=== PATIENT | female | born 1950 | race Caucasian/White ===

== ENCOUNTER → 2020-07-27 06:35 | Outpatient (CLI) | payer OTHER, MEDICARE, SELFPAY ==
[2020-07-27 19:16] LABS: SARS-CoV-2 RNA PCR Negative
== END ==
PROVIDERS: PCP Family Medicine; Visit Provider Specialist
DX: Z01.812 Encounter for preprocedural laboratory examination (principal); Z20.822 Contact with and (suspected) exposure to COVID-19
CPT/HCPCS: C9803; U0003; U0005

== ENCOUNTER 2020-07-31 01:14 | Day surgery (SDC) | payer OTHER, MEDICARE, SELFPAY ==
[2020-07-30 17:13] VITALS: BMI 37.5
[2020-07-31] VITALS (9 sets, daily range): BP systolic 128–187; BP diastolic 58–71; PULSE 71–92; RESP 12–18; TEMP 36.4–36.6; O2SAT 97–100
[2020-07-31 09:14] LABS: Basophils Percent Auto 0.4 % (0.2-1.2); Eosinophils Absolute Auto 0.1 K/mm3 (0-0.3); Eosinophils Percent Auto 1.6 % (0-4.4); Hematocrit 38.5 % (37.0-47.0); Hemoglobin 12.6 g/dL (12.0-15.0); Immature Granulocyte Absolute 0.03 K/mm3 (0.00-0.031); Immature Granulocyte Percent A 0.4 % (0-0.5); Lymphocytes Absolute Auto 1.91 K/mm3 (0.9-3.2); Lymphocytes Percent Auto 22.3 % (18.3-44.2); Mean Corpuscular HGB Conc 32.7 g/dl (32-36); Mean Corpuscular Hemoglobin 29.2 pg (26-34); Mean Corpuscular Volume 89.1 fl (80-100); Monocytes Absolute Auto 0.9 K/mm3 (0.1-0.6); Monocytes Percent Auto 9.9 % (2.6-8.5); Neutrophils Absolute Auto 5.6 K/mm3 (1.3-6.7); Neutrophils Percent Auto 65.4 % (45.5-73.1); Platelet Count Result 187 k/mm3 (150-375); Red Blood Count 4.32 M/mm3 (4.2-5.4); Red Cell Distribution Width 13.5 % (11.5-14.5); White Blood Count 8.6 K/mm3 (4.5-10.0)
[2020-07-31 09:26] LABS: Anion Gap 6 mmol/L (8-16); Blood Urea Nitrogen 17 mg/dL (7-17); Calcium 9.9 mg/dL (8.4-10.2); Carbon Dioxide 33 mmol/L (22-30); Chloride 99 mmol/L (98-107); Estimated CRCL calculation 54 ml/min; Estimated Glomerular Filt Rate > 60; Glucose 156 mg/dL (65-105); Potassium 3.6 mmol/L (3.4-5.0); Sodium 138 mmol/L (137-145)
--- NOTE | 2020-07-31 09:42 | WPDMODSED ---
Moderate Sedation Note-Pt Data Patient Data Diagnosis: Aortic stenosis Present Complaint: Dyspnea Procedure to be performed/Plan: Right and left heart catheterization Allergies Allergy/AdvReac Type Severity Reaction Status Date / Time codeine Allergy Unknown Skin Verified 03/08/20 14:34 Reaction quinapril Allergy Unknown cough Verified 03/08/20 14:34 Home Medications Medication Instructions Recorded Confirmed Type aspirin 81 mg tablet,delayed 81 mg PO DAILY 04/24/19 07/31/20 History release metoprolol tartrate 25 mg tablet 25 mg PO BID 04/24/19 07/31/20 History rosuvastatin 20 mg tablet 20 mg PO DAILY 04/24/19 07/31/20 History clopidogrel 75 mg tablet 75 mg PO DAILY 09/26/19 07/31/20 History ascorbic acid (vitamin C) 500 mg PO DAILY 07/31/20 07/31/20 History cholecalciferol (vitamin D3) 125 mcg PO DAILY 07/31/20 07/31/20 History losartan-hydrochlorothiazide 1 tablet PO DAILY 07/31/20 07/31/20 History metformin 1,000 mg PO BID 07/31/20 07/31/20 History ei-as-pmmn-FA-Ca carb-vit K 1 tablet PO DAILY 07/31/20 07/31/20 History [Women's Multivitamin] naproxen sodium 440 mg PO DAILY 07/31/20 07/31/20 History Current Medications: Active Medications Sodium Chloride (Normal Saline Iv) 500 mls @ 100 mls/hr IV CONT .Q5H GWENDOLYN Sedation/Anesthesia: No previous sedation/anesthesia problems (including family history). [facility] Past Medical History Medical History (Updated 03/08/20 @ 14:55 by Joanne Madera DO) Breast cyst Hepatitis C antibody test negative Surgical History Surgical History H/O heart artery stent History of bilateral tubal ligation Family History Family History Father Family history of rheumatic fever, Onset Age: 46 Family history of cardiovascular disease Sibling Diabetes mellitus Hypertension Mother Hypertension Grandparent Hypertension Social History Social History Smoking status: Never smoker Alcohol intake: never Mod Sed Physical Exam Physical Exam Pre Procedural Exam: Normal: Neck, Throat, Airway, Lungs, Heart Size, Heart Rate, Heart Rhythm, Neuro Exam and Extremities and Variation: Appearance (Obese woman no apparent distress) Hours since solid foods: 12 Hours since liquid intake: 12 Internal Medicine - PN: Obj Da Vital Signs Vital Signs: Vital Signs - 24 hr 07/31/20 09:34 Temperature 36.6 C Pulse Rate 92 Respiratory Rate 15 Blood Pressure 187/70 H Pulse Oximetry 99 Meds/Results Medications: Active Medications Generic Name Dose Route Start Last Admin Trade Name Freq PRN Reason Stop Dose Admin Sodium Chloride 500 mls @ 100 mls/hr 07/31/20 07:00 Normal Saline Iv IV CONT .Q5H GWENDOLYN Labs CBC & Chem 7: 07/31/20 09:06 07/31/20 09:06 Labs: Laboratory Results - last 24 hr 07/31/20 07/31/20 09:06 09:06 WBC 8.6 RBC 4.32 Hgb 12.6 Hct 38.5 MCV 89.1 MCH 29.2 MCHC 32.7 RDW 13.5 Plt Count 187 MPV 11.0 H Immature Gran % (Auto) 0.4 Neut % (Auto) 65.4 Lymph % (Auto) 22.3 [place] % (Auto) 9.9 H Eos % (Auto) 1.6 Baso % (Auto) 0.4 Lymph # (Auto) 1.91 [place] # (Auto) 0.9 H Eos # (Auto) 0.1 Baso # (Auto) 0.0 Abs Immat Gran (auto) 0.03 Absolute Neuts (auto) 5.6 Absolute Nucleated RBC 0.0 Nucleated RBC % 0.0 Sodium 138 Potassium 3.6 Chloride 99 Carbon Dioxide 33 H Anion Gap 6 L BUN 17 Creatinine 0.90 Estim Creat Clear Calc 54 Estimated GFR > 60 Glucose 156 H Calcium 9.9 ASA Classification/Sedation ASA Classification/Sedation Risks: Risks, benefits and alternatives explained and patient/family accepted plan for sedation. Patient re-evaluated immediately prior to sedation.
[2020-07-31 09:56] LABS: INR 0.9; Prothrombin Time 13.1 Seconds (11.1-14.7)
--- NOTE | 2020-07-31 11:17 | WPDCARDPROC ---
Cardiac Cath Procedure Note Date of procedure:: 07/31/20 Performing physician:: Eran Kaur MD Indication:: Aortic valve stenosis / coronary artery disease Brief clinical history:: this is a 70-year-old woman who presented with acute anterior wall myocardial infarction last year. She underwent emergency PCI with stenting of the LAD. She was found to have significant aortic stenosis at that time with which she was either asymptomatic or mildly symptomatic. She now is experiencing exertional dyspnea and aortic valve area by echo appears to be severely stenotic. Right and left heart catheterization is now being recommended in anticipation of cardiothoracic surgery consultation. Procedure Procedure performed:: Right and left heart catheterization Sedation/Medication given:: fentanyl 50 mg Versed 2 mg case start time 10:33 a.m. case end time 11:10 a.m. sedation provided by Magdalena Matos RN, trained observer Access site:: right femoral artery, right femoral vein Estimated blood loss:: 20-30 cc Procedure note:: patient was brought to the cardiac catheterization lab in the postabsorptive state. The right femoral triangle was prepped and draped in the usual fashion. Anesthesia was given with 1% lidocaine infiltrated locally. Using the modified Seldinger technique a long 6 [place] 45 cm sheath was placed into the femoral artery into the central aorta. Following this a 7 [place] sheath was placed into the femoral vein. I used a standard balloon tip [place] catheter to perform right heart catheterization measuring hemodynamics as well as thermodilution cardiac outputs and then sampling av O2 difference. The [place] catheter was then. I then used a 5 [place] angled pigtail catheter to advanced to the central aorta. simultaneous pressures were then sampled in the central aorta through both catheters found to be identical. A straight guidewire was then placed into the pigtail catheter and the stenotic aortic valve was probed. I was able to traverse the stenotic valve and advanced the catheter to the left ventricle. Both catheters were then flushed and zeroed. following this simultaneous LV and aortic pressures were measured and aortic valve area was calculated. The same pigtail catheter was then used injected LV g in the DELATORRE projection . Pullback pressures were measured across the aortic valve. The pigtail catheter was then withdrawn. The coronary arteries were injected selectively using a standard 5 [place] FL4 catheter for the left coronary and a 5 [place] JR4 catheter for the right coronary artery. Procedure was then terminated angiogram was done of the femoral artery through the sheath after which a 6 [place] Angio-Seal device was deployed for hemostasis. 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 Findings:: Hemodynamics: Right atrium 8 mmHg, right ventricle 45 over 7 end-diastolic 12, pulmonary artery pressure 40 over 19, pulmonary capillary wedge pressure 18 central aortic pressure 150 over 58 left ventricle 238 over 2 end-diastolic 22. thermodilution cardiac output is 4.6 liters/minute giving an index of 2.4, Heidi cardiac output is 5.1 liters/minute giving an index of 2.7. The mean aortic valve gradient is 50.4 mmHg, calculated valve area 0.63 cm2. The left ventricle exhibits moderate concentric hypertrophy and is of normal dimension all segments contract nicely the global ejection fraction I would visually estimate to be 60%. Left main coronary artery is very short but without significant disease the LAD is a moderate caliber artery extending down to around the apex there is minimal plaquing in the LAD but does not appear to have any functionally significant lesion. The stent in the proximal LAD remains nicely patent. Circumflex is a medium caliber artery with giving rise to the marginal branches. The circumflex system is smooth and free of s
[2020-07-31] MEDS: SODIUM CHLORIDE 0.9% IV 1,000 ML 125 ML IV CONT (11:30)
--- NOTE | 2020-07-31 14:41 | SUR.PHASEII ---
Discharge instructions given and teaching performed. Patient verbalizes understanding. Patient escorted out of building by staff via wheelchair, where she was picked up by her .
== END 2020-07-31 14:35 | disposition home or self-care (01) ==
PROVIDERS: PCP Family Medicine; Visit Provider Specialist
PROC: 4A023N8 Measurement of Cardiac Sampling and Pressure, Bilateral, Percutaneous Approach (ICD-10-PCS; CPT 93453; principal; 2020-07-31 10:00)
DX: Z01.810 Encounter for preprocedural cardiovascular examination (principal); I35.0 Nonrheumatic aortic (valve) stenosis; I25.10 Atherosclerotic heart disease of native coronary artery without angina pectoris; I25.2 Old myocardial infarction; Z95.5 Presence of coronary angioplasty implant and graft; R06.09 Other forms of dyspnea; Z79.82 Long term (current) use of aspirin; Z79.02 Long term (current) use of antithrombotics/antiplatelets; Z79.84 Long term (current) use of oral hypoglycemic drugs
CPT/HCPCS: 36415; 80048; 85025; 85610; 93460; C1760; C1769; C1887; C1894; C9803; G0269; J1644; J2250; J3010; J7040; U0003; U0005

== ENCOUNTER → 2020-08-23 06:33 | Outpatient (CLI) | payer OTHER, MEDICARE, SELFPAY ==
[2020-08-23 16:12] LABS: SARS-CoV-2 RNA PCR Negative
== END ==
PROVIDERS: PCP Family Medicine; Visit Provider Specialist
DX: Z01.812 Encounter for preprocedural laboratory examination (principal); Z20.822 Contact with and (suspected) exposure to COVID-19
CPT/HCPCS: C9803; U0003; U0005

== ENCOUNTER → 2020-11-11 13:24 | Outpatient (CLI) | payer OTHER, MEDICARE, SELFPAY ==
--- NOTE | ~2020-11-11 | MM_ITS ---
EXAMINATION: MM screening [facility] BI w minda HISTORY: Screening mammogram TECHNIQUE: Craniocaudal and mediolateral oblique 3-D tomosynthesis images were obtained and synthetic 2-D images were generated. CAD analysis was submitted and interpreted. COMPARISON: 12/03/2016, 09/07/2013, 08/17/2013 BREAST PARENCHYMAL COMPOSITION: The breasts are almost entirely fatty. FINDINGS: Scattered benign-appearing calcifications are present. There is no evidence of suspicious m ass, calcification, or architectural distortion to suggest malignancy in either breast. There has bee n no suspicious interval change. IMPRESSION: 1. No mammographic evidence of malignancy. 2. Recommend routine screening mammography in one year. BI-RADS Category 2: Benign finding(s). Reviewed, dictated and finalized at location A.
--- NOTE | ~2020-11-11 | XR_ITS ---
EXAMINATION: XR knee RT 3V DATE: 11/11/2020 13:50 INDICATION: Right knee pain. TECHNIQUE: 3 views of right knee were obtained. COMPARISON: Right knee radiographs 08/24/2007 FINDINGS: There is varus angulation at the knee. No fracture. There is severe osteoarthritis of media l and patellofemoral compartments and mild osteoarthritis of lateral compartment. No knee joint effus ion. IMPRESSION: 1. Severe right knee osteoarthritis. Reviewed, dictated and finalized at location B.
--- NOTE | ~2020-11-11 | XR_ITS ---
EXAMINATION: XR knee LT 3V DATE: 11/11/2020 13:50 INDICATION: Left knee pain. TECHNIQUE: 3 views of left knee including standing views were obtained. COMPARISON: None. FINDINGS: There is varus angulation at the knee. No fracture. There is severe osteoarthritis of media l and patellofemoral compartments and mild osteoarthritis of lateral compartment. There is a small kn ee joint effusion. IMPRESSION: 1. Severe left knee osteoarthritis. 2. Small left knee joint effusion. Reviewed, dictated and finalized at location B.
== END ==
PROVIDERS: PCP Family Medicine; Visit Provider Family Medicine
DX: Z12.31 Encounter for screening mammogram for malignant neoplasm of breast (principal); M25.561 Pain in right knee; M25.562 Pain in left knee; M17.0 Bilateral primary osteoarthritis of knee; M25.462 Effusion, left knee
CPT/HCPCS: 73562; 77063; 77067

== ENCOUNTER 2024-03-03 10:41 | Outpatient (CLI) | payer MEDICARE, SELFPAY ==
--- NOTE | ~2024-03-03 | US_ITS ---
Renal-Bladder ultrasound Clinical History: Diabetes Technique: Real-time sonographic imaging of the kidneys and urinary bladder was performed. Findings: The right kidney measures 7.9 cm in length and the left kidney measures 8.9 cm. There is no hydronephrosis or renal calculus identified. Renal cortical echogenicity is within normal limits. No renal mass lesion is identified. The urinary bladder is moderately distended at the time of this exam. No intraluminal echoes are iden tified. No abnormal wall thickening is seen. Impression: Unremarkable ultrasound of the kidneys and urinary bladder. Reviewed, dictated and finalized at location M. [employer] DEPART[employer] CHAIR Impression: Unremarkable ultrasound of the kidneys and urinary bladder.
== END 2024-03-03 10:42 | disposition home or self-care (01) ==
PROVIDERS: PCP Family Medicine; Visit Provider Internal Medicine Nephrology
DX: E11.9 Type 2 diabetes mellitus without complications (principal); I12.9 Hypertensive chronic kidney disease with stage 1 through stage 4 chronic kidney disease, or unspecified chronic kidney disease; N18.32 Chronic kidney disease, stage 3b
CPT/HCPCS: 76775